=== PATIENT | female | born 1940 ===

== ENCOUNTER 2024-12-27 09:41 | Observation (INO) ==
--- NOTE | 2024-12-27 10:07 | EKG ---
Test Reason : hypotension Blood Pressure : */* mmHG Vent. Rate : 61 BPM Atrial Rate : 64 BPM P-R Int : * ms QRS Dur : 198 ms QT Int : 594 ms P-R-T Axes : * -66 109 degrees QTc Int : 597 ms Ventricular-paced rhythm Abnormal ECG No previous ECGs available Confirmed by Wan Montoya MD ([id number]) on 12/27/2024 10:13:34 AM Referred By: Confirmed By: Wan Montoya MD
[2024-12-27] MEDS ORDERED: NS 500 ML IV 500 ML IV ONE (10:08)
--- NOTE | 2024-12-27 10:08 | DR.GENAD ---
HPI Time Seen Time Seen by Provider: 12/27/24 10:06 HPI Comment HPI Comment: 84 yo F, hx of dementia, BIBA for AMS getting progressively worse over the past couple days. Pt has been on home hospice, than in a [place] [facility] for a couple weeks, discharge home the past couple weeks with home-health, who advised family yesterday that pt continues to decline, and is not progressing. Pt was discharged from home-health care yest. This am, son states pt was non- verbal, unable to wake her. ROS Review of Systems Unable to Obtain Due To: Altered mental status PE Vital Signs Vitals: Vital Signs Temperature 97.6 F Pulse Rate 60 Pulse Rate 60 Pulse Rate 60 Pulse Rate 60 Pulse Rate 60 Pulse Rate 60 Pulse Rate 60 Pulse Rate 64 Pulse Rate 60 Pulse Rate 64 Pulse Rate 60 Pulse Rate 60 Pulse Rate 60 Pulse Rate 61 Respiratory Rate 14 Respiratory Rate 14 Respiratory Rate 13 Respiratory Rate 15 Respiratory Rate 14 Respiratory Rate 14 Respiratory Rate 15 Respiratory Rate 15 Respiratory Rate 14 Respiratory Rate 21 Respiratory Rate 17 Respiratory Rate 15 Respiratory Rate 15 Respiratory Rate 18 Blood Pressure 82/47 Blood Pressure 86/45 Blood Pressure 86/46 Blood Pressure 74/39 Blood Pressure 81/45 Blood Pressure 78/42 Blood Pressure 78/43 O2 Sat by Pulse Oximetry 100 O2 Sat by Pulse Oximetry 100 O2 Sat by Pulse Oximetry 100 O2 Sat by Pulse Oximetry 100 O2 Sat by Pulse Oximetry 100 O2 Sat by Pulse Oximetry 100 O2 Sat by Pulse Oximetry 100 O2 Sat by Pulse Oximetry 100 O2 Sat by Pulse Oximetry 100 O2 Sat by Pulse Oximetry 97 O2 Sat by Pulse Oximetry 96 O2 Sat by Pulse Oximetry 96 O2 Sat by Pulse Oximetry 100 General Limitations: No Limitations General Appearance: Obtunded Head Head Exam: Normal Inspection Eyes Eye exam: Normal Appearance ENT ENT Exam: Normal Exam External Ear Exam: Normal External Inspection TM/Canal Exam: Bilateral: Normal Nose Exam: Normal Nose Exam Mouth Exam: Normal Inspection Throat Exam: Normal Inspection Neck Neck Exam: Normal Inspection Chest Chest Inspection: Normal Inspection Respiratory Respiratory Exam: Normal Lung Sounds Bilat Respiratory Exam: Bilateral: Clear to Auscultation Cardiovascular Cardiovascular Exam: Regular Rate and Normal Rhythm Abdominal Exam Abdominal Exam: Normal Inspection, Normal Bowel Sounds and Soft Extremities Extremities Exam: Edema (2+ pitting edema in all 4 ext, echymosis noted to bilat forearms) Back Back Exam: Normal Inspection Neurologic Neurological Exam: Alert and Oriented X3 Psychiatric Psychiatric Exam: Normal Affect and Normal Mood Skin Skin Exam: Warm and Other (6 cm sacral decub ulcer, stage III, appears necrotic) COURSE Reevaluation 1st: Unchanged (spoke with family about admission for end-of-life care. Airway Controller advises admission, will consult hospice to see pt in hospital.) ROR Labs Reviewed 12/27/24 10:31 12/27/24 10:31 Laboratory: WBC 10.5 X10^3/uL (3.6-10.0) H 12/27/24 10:31 RBC 2.72 X10^6/uL (3.5-5.4) L 12/27/24 10: Hgb 8.6 g/dL (12.0-16.0) L 12/27/24 10: Hct 26.8 % (36.0-47.0) L 12/27/24 10:31 MCV 98.6 fL (80.0-100.0) 12/27/24 10:31 MCH 31.4 pg (27.0-34.0) 12/27/24 10:31 MCHC 31.9 g/dL (33.0-35.0) L 12/27/24 10:31 RDW 23.7 % (11.6-16.5) H 12/27/24 10:31 Plt Count 88 X10^3/uL (150.0-450.0) L 12/27/24 10:31 Plt Count Comment Decreased (ADEQUATE) A 12/27/24 10: MPV 8.8 fL (7.4-11.0) 12/27/24 10:31 Neut % (Auto) 90.5 % (42.0-75.0) H 12/27/24 10:31 Lymph % (Auto) 4.4 % (21.0-51.0) L 12/27/24 10:31 Yates % (Auto) 4.9 % (0.0-13.0) 12/27/24 10:31 Eos % (Auto) 0.0 % (0.9-2.9) L 12/27/24 10:31 Baso % (Auto) 0.2 % (0.2-1.0) 12/27/24 10:31 Neut # (Auto) 9.5 x10^3/uL (2.2-4.8) H 12/27/24 10:31 Lymph # (Auto) 0.5 X10^3/uL (1.3-2.9) L 12/27/24 10:31 Yates # (Auto) 0.5 x10^3/uL (0.3-0.8) 12/27/24 10:31 Eos # (Auto) 0.0 x10^3/uL (0.0-0.2) 12/27/24 10:31 Baso # (Auto) 0.0 X10^3/uL (0.0-0.1) 12/27/24 10:31 Absolute Nucleated RBC 0.0 /100WBC 12/27/24 10:31 Total Counted 100 12/27/24 10:31 Neutrophils % (Manual) 89 % (39-76) H 12/27/24 10:31 Band Neutrophils % 7 % (0-10) 12/27/24 10:31 Lymphocytes % (Manual) 2 % (13-43) L 12/27/24 10:31 Monocytes % (Manual) 2 % (4-9) L 12/27/24 10:31 Plt Morphology Comment Normal (NORMAL) 12/27/24 10:31 RBC Morphology Abnormal (NORMAL) A 12/27/24 10:31 Anisocytosis 2+ A 12/27/24 10:31 Target Cells Slight A 12/27/24 10:31 Stomatocytes Slight A 12/27/24 10:31 PT 18.2 SECONDS (11.8-14.3) 12/27/24 10:31 INR Target Range - 12/27/24 10:31 INR 1.49 (0.8-1.3) H 12/27/24 10:31 APTT 35.1 SECONDS (22.9-36.5) 12/27/24 10:31 PTT Comment - 12/27/24 10:31 Sodium 141 mmol/L (136-145) 12/27/24 10:31 Corrected Sodium 142 mmol/L (136-145) 12/27/24 10:31 Potassium 3.4 mmol/L (3.5-5.1) L 12/27/24 10:31 Chloride 101 mmol/L (98-107) 12/27/24 10:31 Carbon Dioxide 24.1 mmol/L (21-32) 12/27/24 10:31 BUN 45 mg/dL (7-18) H 12/27/24 10:31 Creatinine 3.82 mg/dL (0.55-1.02) H 12/27/24 10:31 Est GFR (MDRD) Af Amer 14 (>60) L 12/27/24 10:31 Est GFR (MDRD) Non-Af 12 (>60) L 12/27/24 10:31 Glucose 129 mg/dL (65-99) H 12/27/24 10:31 Lactic Acid 2.0 mmol/L (0.4-2.0) 12/27/24 10:31 Calcium 6.7 mg/dL (8.5-10.1) L 12/27/24 10:31 Corrected Calcium 8.8 mg/dL (8.5-10.1) 12/27/24 10:31 Magnesium 2.1 mg/dL (2.0-2.9) 12/27/24 10:31 Total Bilirubin 0.90 mg/dL (0.2-1.0) 12/27/24 10:31 AST 32 Units/L (15-37) 12/27/24 10:31 ALT 18 Units/L (12-78) 12/27/24 10:31 Alkaline Phosphatase 172 Units/L (46-116) H 12/27/24 10:31 Creatine Kinase 217 Units/L (26-192) H 12/27/24 10:31 Troponin I High Sens 23.2 ng/L (4.0-60.0) 12/27/24 10:31 Total Protein 5.4 g/dL (6.4-8.2) L 12/27/24 10:31 Albumin 1.4 g/dL (3.4-5.0) L 12/27/24 10:31 Globulin 4.0 g/dL (2.5-4.5) 12/27/24 10:31 Albumin/Globulin Ratio 0.4 Ratio (1.1-2.1) L 12/27/24 10:31 Specimen Type Catherized urine 12/27/24 10:06 Urine Color Straw (YELLOW) 12/27/24 10:06 Urine Appearance Cloudy (CLEAR) 12/27/24 10:06 Urine pH 6.0 (5.0 - 8.0) 12/27/24 10:06 Ur Specific [place] 1.015 (1.000-1.030) 12/27/24 10:06 Urine Protein 3+ (NEGATIVE) 12/27/24 10:06 Urine Glucose (UA) Negative (NEGATIVE) 12/27/24 10:06 Urine Ketones Negative (NEGATIVE) 12/27/24 10:06 Urine Blood 5+ (NEGATIVE) 12/27/24 10:06 Urine Nitrite Negative (NEGATIVE) 12/27/24 10:06 Urine Bilirubin Negative (NEGATIVE) 12/27/24 10:06 Urine Urobilinogen Normal (NORMAL) 12/27/24 10:06 Ur Leukocyte Esterase 3+ (NEGATIVE) 12/27/24 10:06 Urine RBC Tntc /HPF (0-3) A 12/27/24 10:06 Urine WBC Tntc /HPF (0-5) A 12/27/24 10:06 Ur Squamous Epith Cells Rare /HPF (NEGATIVE) 12/27/24 10:06 Urine Bacteria 3+ /HPF (NEGATIVE) 12/27/24 10:06 Ur Culture Indicated? Yes/culture set up 12/27/24 10:06 Opioid Opioid Risk Tool Total: 0 Total Score Risk Category: Low Risk Copyright: Jitendra ROSALES predicting aberrant behaviors Discharge Plan Diagnosis Discharge Problem: Adult failure to thrive, Acute UTI, Decubitus ulcer of sacral region, stage 3 Altered mental status Qualifiers: Altered mental status type: stupor Qualified Code(s): R40.1 - Stupor Dementia Qualifiers: Dementia type: unspecified type Dementia severity: severe Discharge Plan Patient Disposition: ADMITTED INPATIENT Condition: Stable Health Concerns: Post Hospitalization: new medications and changes needed to prevent readmission or further decline. Pt educated and given instructions on all concerns. Plan of Treatment: Continue with present treatment and follow up plan. Pt is to keep follow up appointment as instructed and take medications as ordered. Orders to Discharge Patient Discharge Orders: Transfer (Routine); Ordered 12/27/24 Ordered By: Rahat Barrera Follow ups/Referrals Follow ups/Referrals: Dale Curry [Primary Care Provider, MEDICAL] - 3 days Instructions Stand Alone Forms: Find Help Web Site, Post Hospital Follow Up Care Print Language: CANADIAN Provider Note Additional Notes pt accepted by Dr Zapata
[2024-12-27] MEDS: NS 500 ML IV 500 ML IV ONE (10:10)
[2024-12-27 10:19] VITALS: TEMP 97.6
[2024-12-27 10:28] LABS: BLOOD/HEMOGLOBIN,URINE 5+ (NEGATIVE); LEUKOCYTE ESTERASE ,URINE 3+ (NEGATIVE); NITRITES,URINE NEGATIVE (NEGATIVE)
[2024-12-27 10:36] LABS: APPEARANCE,URINE CLOUDY (CLEAR)
[2024-12-27 10:37] LABS: SQUAMOUS EPITHELIAL CELL,UR RARE /HPF (NEGATIVE)
[2024-12-27 10:41] LABS: MEAN PLATELET VOLUME 8.8 fL (7.4-11.0); RED CELL DISTRIBUTION WIDTH 23.7 % (11.6-16.5)
[2024-12-27 10:48] LABS: INR 1.49 (0.8-1.3)
[2024-12-27 10:56] LABS: COR CA(FOR HYPOALB) 8.8 mg/dL (8.5-10.1); COR NA(FOR HYPERGLY) 142.0 mmol/L (136-145); CREATININE 3.82 mg/dL (0.55-1.02); eGFR NON BLACK RACES 12.0 (>60)
[2024-12-27 11:06] LABS: BAND NEUTROPHILS % 7 % (0-10); PLATELET MORPHOLOGY COMMENT NORMAL (NORMAL)
[2024-12-27] MEDS: ROCEPHIN VIAL 1 GRAM 1 G in NS 100 ML IV 100 ML IV ONE (11:24)
[2024-12-27] MEDS ORDERED: ROCEPHIN VIAL 1 GRAM ONE (11:25)
[2024-12-27] MEDS: ROCEPHIN VIAL 1 GRAM IVP ONE (11:29)
[2024-12-27] MEDS: VANCOMYCIN IV *PREMIX 1 G/200 ML BAG 1 G/200 ML PIGGYBACK IV ONE (11:29)
--- NOTE | 2024-12-27 11:37 | RAD ---
EXAM: CHEST, 1 VIEW HISTORY: SOB; HX OF SQUAMOUS CELL, HTN, TUBAL, STENT, APPY COMPARISON: No relevant prior studies were available for comparison at the time of interpretation. TECHNIQUE: CHEST, 1 VIEW FINDINGS: Chest: Lines and tubes: Left-sided pacemaker generator with lead or leads in satisfactory position. Right IJ central line is in satisfactory position. Cardiac leads overlie the chest. Mediastinum: Borderline cardiomegaly. Pulmonary vessels: There is pulmonary vascular congestion. Lung dias: Patchy opacities are seen Pleura: Bilateral pleural effusions Bones and soft tissues: No acute osseous or soft tissue abnormality. IMPRESSION: 1. Findings suggest pneumonia versus increased volume status 2. Moderate left and large right pleural effusions THIS IS AN ELECTRONICALLY VERIFIED FINAL REPORT 12/27/2024 11:33 AM - Electronically signed by Parviz Christie MD
[2024-12-27] MEDS ORDERED: NS 1,000 ML IV 1,000 ML IV SCH (14:20)
[2024-12-27] MEDS ORDERED: CONSULT PHARMACY - POTASSIUM & MAGNESIUM XX SCH (14:20)
[2024-12-27] MEDS ORDERED: ULTRAM PO PRN (14:20)
[2024-12-27] MEDS ORDERED: ZOFRAN INJ 4 MG VIAL IVP PRN (14:20)
[2024-12-27] MEDS ORDERED: TYLENOL 325 MG TAB PO PRN (14:20)
[2024-12-27] MEDS ORDERED: MORPHINE SULFATE INJ 2 MG INJ IVP PRN (14:20)
[2024-12-27] MEDS ORDERED: ZOFRAN TAB 4 MG PO PRN (14:20)
[2024-12-27] MEDS ORDERED: K-DUR TAB 20 MEQ PO NR (15:00)
[2024-12-27] MEDS ORDERED: K-RIDER 10 MEQ/100 ML WATER 10 MEQ/100 ML BAG IV ONE (15:00)
[2024-12-27 16:54] VITALS: BP 78/43; PULSE 69; RESP 13; O2SAT 100
== END 2024-12-27 17:15 | disposition hospice, inpatient (51) ==
LOC: ER 09:41 → MED/SURG 09:41
PROVIDERS: ADMIT Internal Medicine; ATTEND Internal Medicine
DX: B37.89 Other sites of candidiasis; E83.51 Hypocalcemia; D64.89 Other specified anemias; R40.1 Stupor; R74.8 Abnormal levels of other serum enzymes; N18.9 Chronic kidney disease, unspecified; R06.02 Shortness of breath; J90 Pleural effusion, not elsewhere classified; R94.31 Abnormal electrocardiogram [ECG] [EKG]; R73.09 Other abnormal glucose; R79.1 Abnormal coagulation profile; R60.0 Localized edema; N39.0 Urinary tract infection, site not specified; Z51.5 Encounter for palliative care; I95.89 Other hypotension; R79.89 Other specified abnormal findings of blood chemistry; E87.6 Hypokalemia; Z66 Do not resuscitate; R94.4 Abnormal results of kidney function studies; L89.153 Pressure ulcer of sacral region, stage 3

== ENCOUNTER 2024-12-27 17:16 | Inpatient (IN) ==
[2024-12-27] MEDS ORDERED: ZOFRAN INJ 4 MG VIAL IVP PRN (17:38)
[2024-12-27] MEDS ORDERED: DULCOLAX SUPPOSITORY 10 MG RECTAL PRN (17:38)
[2024-12-27] MEDS ORDERED: TORADOL 30 MG VIAL IVP PRN (17:50)
[2024-12-27] MEDS: TRANSDERM-SCOP TD SCH (17:58)
[2024-12-27] MEDS: TRANSDERM-SCOP TD ONE (18:22)
[2024-12-28] MEDS: MORPHINE SULFATE ORAL SOLN CONC PO PRN (10:53)
--- NOTE | 2024-12-28 11:06 | DR.H&P ---
H&P History & Physical for Day of: H&P Date: 12/27/24 Chief Complaint Chief Complaint: altered mental status History of Present Illness History of Present Illness: Patient is a 84-year-old female with a past medical history of dementia, CAD, diabetes, CKD, presenting with altered mental status that has been progressively getting worse for the past few days. She had been on home hospice and then after that the [facility] and was discharged from there with home health. Since discharge she has continued to decline and is not progressing. She has become nonverbal and is unable to wake. Labs/imaging: WBC 10.5, hemoglobin 8.6, platelets 88, sodium 142, potassium 3.4, creatinine 3.82, glucose 129, troponin negative, UA consistent with infection, chest x-ray does show findings suggest pneumonia as well as a moderate left and large right pleural effusion. Patient has multiple medical problems and labs and imaging currently reveals a CHF exacerbation, pneumonia, acute cystitis. Prognosis is poor. On exam patient appears to have some labored breathing as well as unable to be aroused. It was discussed patient will be admitted for end-of-life care with hospice. Family in agreement with decision. Hospice has been consulted and is following. Will follow-up recommendations, monitor and place orders. Time spent for clinical assessment, reviewing labs/imaging, physical exam, decision making and documentation greater than 45 mins. Past Medical History Past Medical History: Coronary Artery Disease, Diabetes and Renal Disease Past Surgical History Surgical History: Unknown Medications Home Medications: Home Medications Medication Instructions Recorded Confirmed Type alprazolam 0.25 mg tablet 0.25 mg PO BID PRN 12/27/24 12/27/24 History aspirin 81 mg tablet,delayed 81 mg PO QDAY 12/27/24 History release atorvastatin 80 mg tablet 80 mg PO QPM 12/27/24 History brimonidine 0.2 % eye drops 1 drp ophthalmic (eye) BID 12/27/24 12/27/24 History carvedilol 3.125 mg tablet 3.125 mg PO BID 12/27/24 History carvedilol 6.25 mg tablet 6.25 mg PO BID 12/27/2407/16 History clopidogrel 75 mg tablet 75 mg PO QDAY 12/27/2412/27 History docusate sodium 100 mg capsule 100 mg PO BID 12/27/24 12/27/24 History donepezil 5 mg tablet 5 mg PO QPM 12/27/24 History ferrous fumarate 324 mg (106 mg 324 mg PO QDAY 5 12/27/24 History iron) tablet (Ferrocite) fluoxetine 20 mg capsule 20 mg PO QDAY 12/27/2412/27 History furosemide 20 mg tablet 20 mg PO BID PRN swelling 12/27/24 History gabapentin 100 mg capsule 100 mg PO BID 12/27/2412/27 History hydroxychloroquine 200 mg tablet 200 mg PO QPM 5 12/27/24 History ipratropium 0.5 mg-albuterol 3 mg 3 ml inhalation PRN PRN 12/27/24 12/27/24 History (2.5 mg base)/3 mL nebulization soln latanoprost 0.005 % eye drops 1 drp ophthalmic (eye) Q PM 12/27/24 12/27/24 History multivit-minerals no.73-iron 1 cap PO QDAY 12/27/24 History fumarate 106 mg-folic acid 1 mg capsule (Hemocyte-Plus) pantoprazole 40 mg tablet,delayed 40 mg PO QPM 5 12/27/24 History release suzetrigine 50 mg tablet (Journavx) 50 mg PO BID 12/2712/27/24 History tramadol 50 mg tablet 50 mg PO Q8H PRN pain 12/27/24 History Allergies Allergies Allergy/AdvReac Type Severity Reaction Status Date / Time acetaminophen (Percocet) Allergy Unknown Verified 10/12/11 10:08 levofloxacin Allergy Unknown Verified 05/09/19 08:52 lidocaine (Xylocaine) Allergy Unknown Verified 10/12/11 10:08 meperidine (Demerol) Allergy Unknown Verified 10/12/11 10:07 oxycodone (Percocet) Allergy Unknown Verified 10/12/11 10:08 Sulfa (Sulfonamide Allergy Unknown Verified 10/12/11 10:07 Antibiotics) Lorcet Plus *ANALGESICS - Allergy Unknown Uncoded 10/12/11 10:07 OPIO Review of Systems Constitutional: Other (Per family patient-confusion, became non-verbal, unable to arouse) Neurological: Confusion Physical Exam Vital Signs: Vital Signs Temperature 96.7 F Pulse Rate [Brachial] 59 Respiratory Rate 20 Blood Pressure [Left Calf] 87/33 Oriented: Unable to test Ear: Normal Nose: Normal Respiratory: Diminished Throughout and Rales Throughout Cardiovascular: Bradycardia : Dysuria Auscultation: Bowel Sounds: Normal Palpation: Normal Skin: Decreased Turgur Speech Pattern: Unable to speak Assessment/Plan (1) Acute UTI: Status: Acute (2) Pneumonia: Qualifiers: Pneumonia type: due to unspecified organism Laterality: unspecified laterality Lung location: unspecified part of lung Qualified Code(s): J18.9 - Pneumonia, unspecified organism Status: Acute (3) Adult failure to thrive: Status: Acute (4) Dementia: Qualifiers: Dementia severity: severe Dementia type: unspecified type Dementia behavioral or psychological symptom: unspecified whether behavioral, psychotic, or mood disturbance or anxiety Qualified Code(s): F03.C0 - Unspecified dementia, severe, without behavioral disturbance, psychotic disturbance, mood disturbance, and anxiety Status: Acute (5) Altered mental status: Qualifiers: Altered mental status type: stupor Qualified Code(s): R40.1 - Stupor Status: Acute Review H&P Reviewed: Yes Patient was examined?: Yes
--- NOTE | 2024-12-28 11:27 | PCM.PROG ---
Progress Note Progress Note for Day of Date of Exam: 12/28/24 Subjective Subjective: Patient is a 84-year-old female with a past medical history of dementia, CAD, diabetes, CKD, admitted with hospice and providing end-of-life care. This morning, she is resting in bed. Orders have been placed and patient is being monitored kept comfortable. Hospice is following. We will continue current orders. Past Medical Family Social History Allergies: Allergies acetaminophen (Percocet) Allergy (Unknown, Verified 10/12/11 10:08) levofloxacin Allergy (Unknown, Verified 05/09/19 08:52) Reason: Drug allergy lidocaine (Xylocaine) Allergy (Unknown, Verified 10/12/11 10:08) meperidine (Demerol) Allergy (Unknown, Verified 10/12/11 10:07) oxycodone (Percocet) Allergy (Unknown, Verified 10/12/11 10:08) Sulfa (Sulfonamide Antibiotics) Allergy (Unknown, Verified 10/12/11 10:07) Lorcet Plus *ANALGESICS - OPIO Allergy (Unknown, Uncoded 10/12/11 10:07) Free Text Allergy: Lorcet Plus *ANALGESICS - OPIOID* Review of Systems ROS changes noted: see HPI Vital Signs and I&O's Vital Signs: Vital Signs Temperature 96.7 F Pulse Rate [Brachial] 59 Respiratory Rate 20 Blood Pressure [Left Calf] 87/33 Intake and Output: Intake & Output 12/25/24 12/26/24 12/27/24 12/28/24 23:59 23:59 23:59 23:59 Intake Total 0 / 0 0 / 0 Output Total 50 / 50 0 / 0 Balance -50 / -50 0 / 0 Physical Exam Oriented: Unable to test Eyes: Normal Ear: Normal Nose: Normal Throat: Normal Cardiovascular: Bradycardia : Dysuria Auscultation: Bowel Sounds: Normal Tenderness: Normal Skin: Decreased Turgur Musculoskeletal: Normal Psychiatric: Normal Mood Description: Calm and Appropriate Affect: Normal Speech Pattern: Unable to speak Plan (1) Acute UTI: Status: Acute (2) Pneumonia: Status: Acute Qualifiers: Pneumonia type: due to unspecified organism Laterality: unspecified laterality Lung location: unspecified part of lung Qualified Code(s): J18.9 - Pneumonia, unspecified organism (3) Adult failure to thrive: Status: Acute (4) Dementia: Status: Acute Qualifiers: Dementia behavioral or psychological symptom: unspecified whether behavioral, psychotic, or mood disturbance or anxiety Dementia severity: severe Dementia type: unspecified type Qualified Code(s): F03.C0 - Unspecified dementia, severe, without behavioral disturbance, psychotic disturbance, mood disturbance, and anxiety (5) Altered mental status: Status: Acute Qualifiers: Altered mental status type: stupor Qualified Code(s): R40.1 - Stupor
[2024-12-28] MEDS ORDERED: ISOPTO ATROPINE ONE (13:31)
[2024-12-28] MEDS: ISOPTO ATROPINE SL PRN (13:35)
[2024-12-28 17:22] VITALS: BP 90/41; PULSE 60; RESP 20; TEMP 97.6; O2SAT 97
== END 2024-12-28 21:14 | disposition expired | DRG 689 ==
LOC: MED/SURG 17:16
PROVIDERS: ADMIT Internal Medicine; ATTEND Internal Medicine
DX: R06.02 Shortness of breath; J18.8 Other pneumonia, unspecified organism; Z66 Do not resuscitate; Z51.5 Encounter for palliative care; G30.0 Alzheimer's disease with early onset; N18.9 Chronic kidney disease, unspecified; E11.65 Type 2 diabetes mellitus with hyperglycemia; R40.1 Stupor; I25.10 Atherosclerotic heart disease of native coronary artery without angina pectoris; N39.0 Urinary tract infection, site not specified; F41.8 Other specified anxiety disorders; R62.7 Adult failure to thrive